=== PATIENT | female | born 1960 | race Caucasian/White ===

== ENCOUNTER 2018-06-09 02:08 | Emergency (ER) | payer BC ==
--- NOTE | 2018-06-09 02:30 | Emergency Department Record ---
History of Present Illness - General Chief Complaint: Arrythmia/Palpitations Stated Complaint: " iRREGULAR HEART BEAT " Time Seen by Provider: 06/09/18 02:10 Source: Patient Mode of Arrival: Ambulatory Limitations: No limitations - History of Present Illness Initial Comments: 58 yo female presents with a feeling of palpitations. She states she has noticed this more over the last 2-3 months. She had similar symptoms about 6 years ago. She saw a physical trainer and told she has an irregular beat that was not a danger. No history of a specific diagnosis. She has a phone heather that indicated she was in ventricular bigeminy. Recently she has had other associated symptoms such as a mild dizziness, occasional aching feeling in the chest and back. No shortness of breath but she does get some nausea. No known CAD. No other recent illness. She is a non smoker. No current medications. 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 MD Complaint: Irregular heart beat, Palpitations -: Days(s) Context: Occurred during rest Arrythmia History: Other Associated Symptoms: Nausea/vomiting, Other (dizziness, ache in the chest) Treatments Prior to Arrival: Other - Related Data Home Medications Medication Instructions Recorded Confirmed Last Taken Temazepam [Restoril] 15 mg PO QHS PRN 06/09/18 06/09/18 Unknown Allergies Allergy/AdvReac Type Severity Reaction Status Date / Time loracarbef [From Lorabid] Allergy PT UNSURE Verified 06/09/18 02:30 OF REACTION Review of Systems Constitutional: Denies: Chills, Fever, Malaise, Night sweats Eyes: Denies: Eye discharge ENT: Denies: Congestion, Throat pain Respiratory: Denies: Cough, Dyspnea, Hemoptysis, Stridor, Wheezes Cardiovascular: Reports: Chest pain, Palpitations. Denies: Dyspnea on exertion , Edema, Syncope Endocrine: Denies: Fatigue Gastrointestinal: Reports: Nausea. Denies: Abdominal pain, Diarrhea, Vomiting Genitourinary: Denies: Dysuria, Urgency Musculoskeletal: Denies: Arthralgia, Back pain, Myalgia Skin: Denies: Bruising, Change in color, Rash Neurological: Reports: Vertigo. Denies: Headache, Numbness, Weakness Psychiatric: Denies: Anxiety Hematological/Lymphatic: Denies: Blood Clots, Easy bleeding, Easy bruising Physical Exam - General General Appearance: Alert, Oriented x3, Cooperative, No acute distress Limitations: No limitations - Head Head exam: Atraumatic, Normal inspection - Eye Eye exam: Normal appearance, PERRL. negative: Conjunctival injection, Scleral icterus - ENT ENT exam: Normal exam Ear exam: Normal external inspection Nasal Exam: Normal inspection Mouth exam: Normal external inspection - Neck Neck exam: Normal inspection - Respiratory Respiratory exam: Normal lung sounds bilaterally. negative: Respiratory distress - Cardiovascular Cardiovascular Exam: Regular rate, Irregular rhythm. negative: Normal rhythm Peripheral Pulses: 2+: Radial (R), Radial (L) - GI/Abdominal GI/Abdominal exam: Soft. negative: Tenderness - Rectal Rectal exam: Deferred - exam: Deferred - Extremities Extremities exam: Normal inspection, Full ROM, Normal capillary refill. negative: Pedal edema, Tenderness - Back Back exam: Denies: CVA tenderness (R), CVA tenderness (L) - Neurological Neurological exam: Alert, CN II-XII intact, Oriented X3. negative: Altered - Psychiatric Psychiatric exam: Normal affect, Normal mood. negative: Agitated, Anxious - Skin Skin exam: Dry, Intact, Normal color, Warm Course - Reevaluation(s) Reevaluation #1: EKG 02:15 Sinus rhythm with ventricular trigeminy, interval normal, axis normal, ST no acute changes. No old for comparison. 06/09/18 02:22 06/09/18 02:44 The phone heather documents frequent bigeminy 06/09/18 02:57 The magnesium is 2.2 The K is 3.7 06/09/18 02:58 The troponin is normal at 0.01 06/09/18 03:12 TSH is 6.31 06/09/18 03:37 I recommend further evaluation with cardiology given she is symptomatic with the bigeminy and trigeminy. I offered transfer to a larger hospital with cardiology ([place] or [place]). She requested [facility] in [place] where her works. The ER was contacted for possible transfer. The ED attending discussed the case with cardiology at [place]. Given the limitations at [place] on the weekend the recommendation was transfer to a cardiac center locally or [facility]. The patient requests transfer to [facility]. The transfer line was called at [facility]. The patient will be made a direct admission. 06/09/18 04:00 06/09/18 04:30 Karol Colmenares of [facility]. A repeat troponin was requested prior to transfer. 06/09/18 05:03 The repeat troponin is negative The transfer line was informed The patient is stable for transfer 06/09/18 05:36 [facility] transfer line called. The patient is accepted. Bola reports waiting for clean bed. Medical Decision Making - Lab Data Result diagrams: 06/09/18 02:24 06/09/18 02:24 Disposition Disposition: Transfer Clinical Impression: Palpitations, Ventricular trigeminy Chest pain Qualifiers: Chest pain type: unspecified Qualified Code(s): R07.9 - Chest pain, unspecified Disposition: Acute Care Hospital Transfer Transfer To: [facility] Reason For Transfer: Palpitations, Chest pain Accepting Physician: Dedra Time Discussed w/Accepting Physician: 05:03 Condition: (2) Stable Forms: Patient Portal Access Time of Disposition: 04:10 Quality - Quality Measures Quality Measures: N/A - Blood Pressure Screening Does Patient Have Any of the Following: No Blood Pressure Classification: Hypertensive Reading Systolic Measurement: 146 Diastolic Measurement: 96 Screening for High Blood Pressure: < Pre-Hypertensive BP, F/U Documented > [ G8950] Pre-Hypertensive Follow-up Interventions: Referral to alternative/primary care provider.
[2018-06-09 02:35] LABS: BASO % 0.3 % (0-6); EOS % 0.8 % (0-6); GRAN % 48.9 % (47-80); HEMATOCRIT 43.7 % (35.0-47.0); HEMOGLOBIN 14.2 gm/dl (11.6-16.0); LYMPH % 42.5 % (16-45); MEAN CELL VOLUME 91.2 fl (81-97); MEAN CORPUSCULAR HEMOGLOBIN 29.6 pg (27-33); MEAN CORPUSCULAR HGB CONC 32.5 g/dl (32-36); MEAN PLATELET VOLUME 9.9 fl (7.4-10.4); MONO % 7.5 % (0-9); PLATELET COUNT 286 K/uL (130-400); RED BLOOD COUNT 4.79 M/uL (3.80-5.40); RED CELL DISTRIBUTION WIDTH 13.7 % (11.5-14.5); WHITE BLOOD COUNT W/O DIFF 7.1 K/uL (4.2-12.2)
[2018-06-09] MEDS ORDERED: ASPIRIN 81 MG CHEWABLE TABLET PO ONE (02:41)
[2018-06-09 02:45] LABS: PROTHROMBIN TIME (PATIENT) 10.3 SECONDS (9.5-12.1)
[2018-06-09 02:50] LABS: BLOOD UREA NITROGEN 22 mg/dL (6-20); EST GLOMERULAR FILTRATION RATE > 60 mL/min
[2018-06-09 02:53] LABS: GLUCOSE,RANDOM 104 mg/dL (74-109)
[2018-06-09 02:56] LABS: ALB/GLOB RATIO 1.4 (1.1-1.8); ALBUMIN 4.7 g/dL (4.0-5.0); ALKALINE PHOSPHATASE 135 U/L (35-104); ALT/SGPT 22 U/L (<33); AST/SGOT 19 U/L (10.0-35.0)
[2018-06-09] MEDS ORDERED: POTASSIUM CHL 20MEQ IN 1L NS 20 MEQ/1,000 ML BAG IV ONE (02:57)
[2018-06-09 03:07] LABS: THYROID STIMULATING HORMONE 6.31 uIU/mL (0.270-4.20)
--- NOTE | 2018-06-11 08:02 | RADIOLOGY REPORT ---
EXAM: CHEST, ONE VIEW HISTORY: PALPITATIONS. TECHNIQUE: A single AP view of the chest was obtained. Comparison: None. FINDINGS: The cardiomediastinal silhouette is normal in size. The pulmonary vasculature is non-congested. No focal consolidation, pleural effusion, or pneumothorax is seen. The bones are osteopenic. IMPRESSION: NO EVIDENCE FOR PNEUMONIA OR PULMONARY EDEMA. JOB NUMBER: [id number] MTDD
== END 2018-06-09 07:00 | disposition short-term general hospital (02) ==
LOC: ER 02:08
DX: R00.8 Other abnormalities of heart beat (principal); R42 Dizziness and giddiness; R11.2 Nausea with vomiting, unspecified; R07.9 Chest pain, unspecified
CPT/HCPCS: 71045; 80053; 83735; 84443; 84484; 85025; 85610; 85730; 93005; 93010; 96374; 99285

== ENCOUNTER 2019-07-24 12:18 | Emergency (ER) | payer SELFPAY ==
[2019-07-24] MEDS ORDERED: NYSTATIN 100,000 UNITS/ML 5ML CUP PO ONE (13:13)
--- NOTE | 2019-07-24 13:25 | Emergency Department Record ---
History of Present Illness - General Chief complaint: ENT Stated complaint: MOUTH BURNING/CHEST BURNING Time Seen by Provider: 07/24/19 12:47 Mode of Arrival: Ambulatory - History of Present Illness Initial comments: patient has sorethroat and burning and she was started on an antiobiotic three days ago because felt it was strep and her strep screen was negative and she is refusing the flu swab and EKG risks discussed and she said she knows she is not having a cardiac issue. She also said she doesn't have the flu. She only took three doses of her antibiotic Onset/Timin -: Days(s) Location: Throat Severity: Moderate Severity scale (1-10): 10 Quality: Aching, Burning Consistency: Constant - Related Data Home Medications Medication Instructions Recorded Confirmed Last Taken No Home Med [NO HOME MEDS] 07/24/19 07/24/19 Unknown Allergies Allergy/AdvReac Type Severity Reaction Status Date / Time loracarbef [From Lorabid] Allergy PT UNSURE Verified 07/24/19 12:38 OF REACTION Travel Screening - Travel/Exposure Within Last 30 Days Have you traveled within the last 30 days?: No - Travel/Exposure Within Last Year Have you traveled outside the [place] in the last year?: No - Additonal Travel Details Have you been exposed to anyone with a communicable illness?: No - Travel Symptoms Symptom Screening: None Review of Systems Reviewed: No additional complaints except as noted below Constitutional: Reports: As per HPI. Denies: Chills, Fever, Malaise, Night sweats, Weakness, Weight change Eyes: Reports: As per HPI. Denies: Eye discharge, Eye pain, Photophobia, Vision change ENT: Reports: As per HPI, Congestion, Throat pain. Denies: Dental pain, Ear pain, Epistaxis, Hearing loss Respiratory: Reports: As per HPI, Cough. Denies: Dyspnea, Hemoptysis, Stridor, Wheezes Cardiovascular: Reports: As per HPI. Denies: Arrhythmia, Chest pain, Dyspnea on exertion, Edema, Murmurs, Orthopnea, Palpitations, Paroxysmal nocturnal dyspnea, Rheumatic Fever, Syncope Endocrine: Reports: As per HPI. Denies: Fatigue, Heat or cold intolerance, Polydipsia, Polyuria Gastrointestinal: Reports: As per HPI. Denies: Abdominal pain, Constipation, Diarrhea, Hematemesis, Hematochezia, Melena, Nausea, Vomiting Genitourinary: Reports: As per HPI. Denies: Abnormal menses, Discharge, Dyspareunia, Dysuria, Frequency, Hematuria, Incontinence, Retention, Urgency Musculoskeletal: Reports: As per HPI. Denies: Arthralgia, Back pain, Gout, Joint swelling, Myalgia, Neck pain Skin: Reports: As per HPI. Denies: Bruising, Change in color, Change in hair/nails, Lesions, Pruritus, Rash Neurological: Reports: As per HPI. Denies: Abnormal gait, Confusion, Headache, Numbness, Paresthesias, Seizure, Tingling, Tremors, Vertigo, Weakness Psychiatric: Reports: As per HPI. Denies: Anxiety, Auditory hallucinations, Depression, Homicidal thoughts, Suicidal thoughts, Visual hallucinations Hematological/Lymphatic: Reports: As per HPI. Denies: Anemia, Blood Clots, Easy bleeding, Easy bruising, Swollen glands Past Medical History - SOCIAL HISTORY Smoking Status: Never smoker Alcohol Use: None Drug Use: None - RESPIRATORY Hx Respiratory Disorders: No - CARDIOVASCULAR Hx Cardio Disorders: Yes Hx Irregular Heartbeat: Yes - NEURO Hx Neuro Disorders: No - GI Hx GI Disorders: Yes Hx Reflux: Yes (endo 06/14) - Hx Genitourinary Disorders: No - ENDOCRINE Hx Endocrine Disorders: No Hx Thyroid Disease: Yes (thyroid nodules) - MUSCULOSKELETAL Hx Musculoskeletal Disorders: Yes Hx Fibromyalgia: Yes Comment:: mast cell activation syndrome - PSYCH Hx Psych Problems: Yes Hx Anxiety: Yes - HEMATOLOGY/ONCOLOGY Hx Hematology/Oncology Disorders: Yes Comment:: mast cell syndrome Family Medical History Any Significant Family History?: Yes Physical Exam - General General Appearance: Alert, Oriented x3, Cooperative, No acute distress - Head Head exam: Normal inspection - Eye Eye exam: Normal appearance, PERRL Pupils: Normal accommodation - ENT ENT exam: Normal exam, Mucous membranes moist, Normal external ear exam, Normal orophraynx, TM's normal bilaterally Ear exam: Normal external inspection. negative: External canal tenderness Nasal Exam: Normal inspection. negative: Discharge, Sinus tenderness Mouth exam: Normal external inspection, Tongue normal Teeth exam: Normal inspection. negative: Dental caries Throat exam: Normal inspection. negative: Tonsillar erythema, Tonsillar exudate - Neck Neck exam: Normal inspection, Full ROM. negative: Tenderness - Respiratory Respiratory exam: Normal lung sounds bilaterally. negative: Respiratory distress - Cardiovascular Cardiovascular Exam: Regular rate, Normal rhythm, Normal heart sounds - GI/Abdominal GI/Abdominal exam: Soft, Normal bowel sounds. negative: Tenderness - Rectal Rectal exam: Deferred - exam: Deferred - Extremities Extremities exam: Normal inspection, Full ROM, Normal capillary refill. negative: Tenderness - Back Back exam: Reports: Normal inspection, Full ROM. Denies: Muscle spasm, Rash noted, Tenderness - Neurological Neurological exam: Alert, Normal gait, Oriented X3, Reflexes normal - Psychiatric Psychiatric exam: Normal affect, Normal mood - Skin Skin exam: Dry, Intact, Normal color, Warm Course Vital Signs 07/24/19 12:32 Temperature 97.6 F Pulse Rate [ 71 Right] Respiratory 20 Rate Blood Pressure 122/78 [Left Arm] Pulse Ox 99 Medical Decision Making - Data Complexity MDM Data: Labs Ordered and/or Reviewed (strep negative) - Lab Data Lab Results 07/24/19 Range/Units 12:55 Group A Strep Screen Negative (NEGATIVE) Disposition Clinical Impression: Thrush Disposition: Home, Self-Care Condition: (1) Good Instructions: Oral Candidiasis (ED) Additional Instructions: follow up with family DR in 2 days stop antibiotics keflex Forms: Patient Portal Access Time of Disposition: 13:32 Quality - Quality Measures Quality Measures: N/A - Blood Pressure Screening Does Patient Have Any of the Following: No Blood Pressure Classification: Pre-Hypertensive BP Reading Systolic Measurement: 122 Diastolic Measurement: 78 Screening for High Blood Pressure: < Pre-Hypertensive BP, F/U Documented > [G8950] Pre-Hypertensive Follow-up Interventions: Referral to alternative/primary care provider.
--- NOTE | 2019-07-24 13:37 | Emergency Department Record ---
History of Present Illness - General Chief complaint: ENT Stated complaint: MOUTH BURNING/CHEST BURNING Time Seen by Provider: 07/24/19 12:47 Mode of Arrival: Ambulatory - History of Present Illness Onset/Timin -: Days(s) Location: Throat Severity: Moderate Severity scale (1-10): 10 Quality: Aching, Burning Consistency: Constant - Related Data Previous Rx's Medication Instructions Recorded Nystatin 5 ml PO QID #200 ml 07/24/19 Allergies Allergy/AdvReac Type Severity Reaction Status Date / Time loracarbef [From Lorabid] Allergy PT UNSURE Verified 07/24/19 12:38 OF REACTION Travel Screening - Travel/Exposure Within Last 30 Days Have you traveled within the last 30 days?: No - Travel/Exposure Within Last Year Have you traveled outside the [place] in the last year?: No - Additonal Travel Details Have you been exposed to anyone with a communicable illness?: No - Travel Symptoms Symptom Screening: None Review of Systems Constitutional: Reports: As per HPI. Denies: Chills, Fever, Malaise, Night sweats, Weakness, Weight change Eyes: Reports: As per HPI. Denies: Eye discharge, Eye pain, Photophobia, Vision change ENT: Reports: As per HPI, Congestion, Throat pain. Denies: Dental pain, Ear pain, Epistaxis, Hearing loss Respiratory: Reports: As per HPI, Cough. Denies: Dyspnea, Hemoptysis, Stridor, Wheezes Cardiovascular: Reports: As per HPI. Denies: Arrhythmia, Chest pain, Dyspnea on exertion, Edema, Murmurs, Orthopnea, Palpitations, Paroxysmal nocturnal dyspnea, Rheumatic Fever, Syncope Endocrine: Reports: As per HPI. Denies: Fatigue, Heat or cold intolerance, Polydipsia, Polyuria Gastrointestinal: Reports: As per HPI. Denies: Abdominal pain, Constipation, Diarrhea, Hematemesis, Hematochezia, Melena, Nausea, Vomiting Genitourinary: Reports: As per HPI. Denies: Abnormal menses, Discharge, Dyspareunia, Dysuria, Frequency, Hematuria, Incontinence, Retention, Urgency Musculoskeletal: Reports: As per HPI. Denies: Arthralgia, Back pain, Gout, Joint swelling, Myalgia, Neck pain Skin: Reports: As per HPI. Denies: Bruising, Change in color, Change in hair/nails, Lesions, Pruritus, Rash Neurological: Reports: As per HPI. Denies: Abnormal gait, Confusion, Headache, Numbness, Paresthesias, Seizure, Tingling, Tremors, Vertigo, Weakness Psychiatric: Reports: As per HPI. Denies: Anxiety, Auditory hallucinations, Depression, Homicidal thoughts, Suicidal thoughts, Visual hallucinations Hematological/Lymphatic: Reports: As per HPI. Denies: Anemia, Blood Clots, Easy bleeding, Easy bruising, Swollen glands Past Medical History - SOCIAL HISTORY Smoking Status: Never smoker Alcohol Use: None Drug Use: None - RESPIRATORY Hx Respiratory Disorders: No - CARDIOVASCULAR Hx Cardio Disorders: Yes Hx Irregular Heartbeat: Yes - NEURO Hx Neuro Disorders: No - GI Hx GI Disorders: Yes Hx Reflux: Yes (endo 06/14) - Hx Genitourinary Disorders: No - ENDOCRINE Hx Endocrine Disorders: No Hx Thyroid Disease: Yes (thyroid nodules) - MUSCULOSKELETAL Hx Musculoskeletal Disorders: Yes Hx Fibromyalgia: Yes Comment:: mast cell activation syndrome - PSYCH Hx Psych Problems: Yes Hx Anxiety: Yes - HEMATOLOGY/ONCOLOGY Hx Hematology/Oncology Disorders: Yes Comment:: mast cell syndrome Family Medical History Any Significant Family History?: Yes Course Vital Signs 07/24/19 12:32 Temperature 97.6 F Pulse Rate [ 71 Right] Respiratory 20 Rate Blood Pressure 122/78 [Left Arm] Pulse Ox 99 Medical Decision Making - Lab Data Lab Results 07/24/19 Range/Units 12:55 Group A Strep Screen Negative (NEGATIVE) Disposition Clinical Impression: Thrush Disposition: Home, Self-Care Condition: (1) Good Instructions: Oral Candidiasis (ED) Additional Instructions: follow up with family DR in 2 days stop antibiotics keflex Prescriptions: Nystatin 5 ml PO QID #200 ml Forms: Patient Portal Access Time of Disposition: 13:37 Quality - Quality Measures Quality Measures: N/A - Blood Pressure Screening Does Patient Have Any of the Following: No Blood Pressure Classification: Pre-Hypertensive BP Reading Systolic Measurement: 122 Diastolic Measurement: 78 Screening for High Blood Pressure: < Pre-Hypertensive BP, F/U Documented > [G8950] Pre-Hypertensive Follow-up Interventions: Referral to alternative/primary care provider.
== END 2019-07-24 13:41 | disposition home or self-care (01) ==
LOC: ER 12:18
DX: B37.0 Candidal stomatitis (principal); R07.89 Other chest pain
CPT/HCPCS: 87880; 99283